=== PATIENT | male | born 1985 | race Caucasian/White ===

== ENCOUNTER 2024-08-19 17:49 | Emergency (ER) | payer MEDICAID ==
[~2024-08-19] VITALS: Ht 172.7 cm; Wt 80.0 kg
[2024-08-19 17:51] VITALS: O2SAT 99
[2024-08-19] MEDS: ACETAMINOPHEN 325MG TABLET PO ONE (21:27)
[2024-08-19] MEDS ORDERED: OXYM30SP26 BOTHNSTRLS (21:53)
[2024-08-19 22:15] VITALS: BP 119/65; PULSE 76; RESP 18; TEMP 36.8; O2SAT 98
[2024-08-19] MEDS: TETANUS, DIPHTHERIA, PERTUSSIS VAC/PF 0.5ML (>10YR OLD) IM ONE (22:34)
== END 2024-08-19 23:15 | disposition home or self-care (01) ==
LOC: ER 17:49
DX: S02.2XXA Fracture of nasal bones, initial encounter for closed fracture (principal); Z23 Encounter for immunization; Z88.6 Allergy status to analgesic agent; V89.2XXA Person injured in unspecified motor-vehicle accident, traffic, initial encounter; Y93.89 Activity, other specified; Y92.89 Other specified places as the place of occurrence of the external cause; Y99.8 Other external cause status
CPT/HCPCS: 70450; 70486; 90715; 90471; 99291; Z7610; A4606